=== PATIENT | female | born 1970 | race Caucasian/White ===

== ENCOUNTER → 2017-07-24 | Outpatient (CLI) | payer OTHER ==
--- NOTE | 2017-07-24 16:09 | RAD ---
EXAM DESCRIPTION: Foot,Right 3 Views CLINICAL HISTORY: 47 years, Female, PAIN IN RIGHT FOOT COMPARISON: None TECHNIQUE: AP, lateral, and oblique views of the right foot FINDINGS: Moderate hallux valgus at the base of the great toe with hypertrophic first metatarsal head and mild degenerative changes are present. Toes two through five are unremarkable. Minimal calcaneal spurring at the plantar arch origin is noted. The foot is otherwise unremarkable. IMPRESSION: Minimal degenerative changes and mild hallux valgus of the great toe. Electronically signed by: Yaakov Booth MD 07/24/2017 4:08 PM [facility]
== END | disposition home or self-care (01) ==
LOC: RAD 08:29
PROVIDERS: ATTEND Orthopaedic Surgery
DX: M79.671 Pain in right foot (principal)

== ENCOUNTER → 2017-07-31 | Outpatient (CLI) | payer OTHER | END | disposition home or self-care (01) | LOC: LAB.O 12:51 | PROVIDERS: ATTEND Orthopaedic Surgery | DX: Z01.818 Encounter for other preprocedural examination (principal) ==